=== PATIENT | male | born 1965 | race Caucasian/White ===

== ENCOUNTER 2021-02-23 07:30 | Outpatient (CLI) | payer OTHER, SELFPAY ==
[2021-02-23 07:50] LABS: Basophils Absolute Auto 0.1 K/mm3 (0.0-0.1); Eosinophils Absolute Auto 0.1 K/mm3 (0-0.3); Eosinophils Percent Auto 1.9 % (0-4.4); Hematocrit 44.3 % (42.0-52.0); Hemoglobin 15.3 g/dL (14.0-18.0); Immature Granulocyte Absolute 0.03 K/mm3 (0.00-0.031); Immature Granulocyte Percent A 0.4 % (0-0.5); Lymphocytes Absolute Auto 2.37 K/mm3 (0.9-3.2); Lymphocytes Percent Auto 34.9 % (18.3-44.2); Mean Corpuscular HGB Conc 34.5 g/dl (32-36); Mean Corpuscular Hemoglobin 31.4 pg (26-34); Mean Corpuscular Volume 90.8 fl (80-100); Mean Platelet Volume 10.3 fl (7.4-10.4); Monocytes Absolute Auto 0.4 K/mm3 (0.1-0.6); Monocytes Percent Auto 5.9 % (2.6-8.5); Neutrophils Absolute Auto 3.8 K/mm3 (1.3-6.7); Neutrophils Percent Auto 55.9 % (45.5-73.1); Platelet Count Result 209 k/mm3 (150-375); Red Blood Count 4.88 M/mm3 (4.6-6.20); Red Cell Distribution Width 13.2 % (11.5-14.5); White Blood Count 6.8 K/mm3 (4.5-10.0)
[2021-02-23 08:06] LABS: Alanine Aminotransferase 45 U/L (4-50); Albumin Level 4.5 g/dL (3.5-5.1); Alkaline Phosphatase 52 U/L (38-126); Anion Gap 11 mmol/L (8-16); Aspartate Amino Transferase 29 U/L (17-59); Bilirubin,Total 0.5 mg/dL (0.2-1.3); Blood Urea Nitrogen 16 mg/dL (9-20); Calcium 9.6 mg/dL (8.4-10.2); Carbon Dioxide 22 mmol/L (22-30); Chloride 106 mmol/L (98-107); Cholesterol 223 mg/dL (0-200); Estimated Glomerular Filt Rate > 60; Glucose 123 mg/dL (65-110); HDL Direct 44 mg/dL; Potassium 4.7 mmol/L (3.4-5.0); Sodium 139 mmol/L (137-145); Triglycerides 89 mg/dL (<150)
[2021-02-23 08:18] LABS: LDL Cholesterol Direct 144 mg/dL
[2021-02-23 08:35] LABS: Prostate Specific Antigen 1.6 ng/mL (< OR = 4.0)
[2021-02-23 08:39] LABS: Vitamin D 25 Hydroxy 54.5 ng/mL
[2021-02-26 09:03] LABS: Hemoglobin A1C 6.1 % (<5.7)
== END 2021-02-23 07:31 | disposition home or self-care (01) ==
LOC: ANHLAB 07:32
PROVIDERS: Physician Assistant; PCP Internal Medicine; Visit Provider Internal Medicine
DX: R53.83 Other fatigue (principal); R73.9 Hyperglycemia, unspecified
CPT/HCPCS: 36415; 80053; 80061; 82306; 83036; 84153; 84443; 85025; G0103

== ENCOUNTER 2021-06-25 10:08 | Emergency (ER) | payer OTHER, SELFPAY ==
[2021-06-25 10:23] VITALS: BP 135/88; PULSE 85; RESP 16; TEMP 36.6; O2SAT 99
--- NOTE | 2021-06-25 10:59 | ED.MALEGU ---
HPI - Male Genitourinary General Chief complaint: Urogenital-Male Stated complaint: Urinary Problem Time Seen by Provider: 06/25/21 10:56 Source: patient Mode of arrival: ambulatory Limitations: no limitations History of Present Illness HPI Narrative: 56-year-old male presents with concern for dysuria, frequency, urgency, not emptying his bladder, cloudy, brown, malodorous urine. He reports symptoms started on Friday with fever, body aches, chills, sweats. Reports he has been taking Tylenol ibuprofen. Reports he has no concern for STDs. He denies testicular pain, swelling, redness. He denies back pain, nausea, vomiting, hematuria. MD Complaint: dysuria Related Data Allergies Allergy/AdvReac Type Severity Reaction Status Date / Time bee pollen Allergy Unknown Unknown Verified 06/25/21 10:24 Review of Systems Review of Systems: CONSTITUTIONAL: Reports malaise, chills, sweats, fever. CARDIOVASCULAR: Denies chest pain, palpitations, or edema. RESPIRATORY: Denies cough or dyspnea. GASTROINTESTINAL: Denies abdominal pain, nausea, vomiting, diarrhea, bloody, or mucous stools. GENITOURINARY: Reports dysuria, frequency, urgency or hematuria. Frequent history denies testicular pain, redness, swelling MUSCULOSKELETAL: Reports myalgia. NEUROLOGIC: Denies numbness, weakness, or headache. PSYCHIATRIC: Denies anxiety or depression. All systems reviewed & are unremarkable except as noted in HPI and below [facility] Past Medical History Medical History (Updated 06/25/21 @ 11:05 by Tracey Morales NP) Primary osteoarthritis of right hip Surgical History Surgical History Status post total hip replacement, left Family History Family History Sibling Patient's sister is in good health Patient's brother is in good health Father Acute myocardial infarction, Onset Age: 73 Patient's father is Family history of malignant neoplasm Mother Family history of diabetes mellitus in first degree relative Family history of malignant neoplasm Social History Social History Smoking status: Never smoker Second hand tobacco smoke exposure: Yes Alcohol intake: current Substance use: never Substance use type: does not use Comments At time of signature, agree with nursing past medical, surgical, social and family history. There is no relevant family history pertinent to the presenting complaint Exam Narrative: GENERAL: Nontoxic-appearing, well-nourished, and in no acute distress. HEAD: Normocephalic. EYES: PERRLA, conjunctivae clear. NECK: Supple. No lymphadenopathy CHEST: Clear to auscultation. No respiratory distress. HEART: Regular rate and rhythm. ABDOMEN: Soft, nontender upon palpation, nondistended, normal active bowel sounds, no palpable or pulsatile masses, no guarding. No CVA tenderness SKIN: Warm no rash. Diaphoretic NEURO: Alert and oriented x3. PSYCH: Normal mood and affect Course Course Emergency Course: Patient is aware of diagnosis, understands and agrees to treatment plan. Anticipatory guidance given. Patient agrees to follow-up as directed and is aware of reasons to seek care at the emergency department. Portions of this record may have been created with voice recognition software Level of Care: Express Care Visit Vital Signs Vital signs: Vital Signs Temperature 97.9 F 06/25/21 10:23 Pulse Rate 85 06/25/21 10:23 Respiratory Rate 16 06/25/21 10:23 Blood Pressure 135/88 06/25/21 10:23 Pulse Oximetry 99 06/25/21 10:23 Temperature 97.9 F 06/25/21 10:23 Pulse Rate 85 06/25/21 10:23 Respiratory Rate 16 06/25/21 10:23 Blood Pressure 135/88 06/25/21 10:23 Pulse Oximetry 99 06/25/21 10:23 Reviewed. MDM - Male Genitourinary MDM Narrative Medical decision making narrative: Exam findings show no acute con
== END 2021-06-25 11:08 | disposition home or self-care (01) ==
PROVIDERS: Emergency Provider Nurse Practitioner; PCP Internal Medicine
DX: N39.0 Urinary tract infection, site not specified (principal); M16.11 Unilateral primary osteoarthritis, right hip
CPT/HCPCS: 81003; 87077; 87086; 87186; 99213; G0463

== ENCOUNTER 2022-02-12 07:08 | Outpatient (CLI) | payer OTHER, SELFPAY ==
[2022-02-12 07:19] LABS: Basophils Absolute Auto 0.1 K/mm3 (0.0-0.1); Basophils Percent Auto 0.7 % (0.2-1.2); Eosinophils Absolute Auto 0.1 K/mm3 (0-0.3); Eosinophils Percent Auto 1.7 % (0-4.4); Hematocrit 44.3 % (42.0-52.0); Hemoglobin 14.9 g/dL (14.0-18.0); Immature Granulocyte Absolute 0.01 K/mm3 (0.00-0.031); Immature Granulocyte Percent A 0.1 % (0-0.5); Lymphocytes Absolute Auto 2.23 K/mm3 (0.9-3.2); Lymphocytes Percent Auto 31.9 % (18.3-44.2); Mean Corpuscular HGB Conc 33.6 g/dl (32-36); Mean Corpuscular Hemoglobin 31.2 pg (26-34); Mean Corpuscular Volume 92.9 fl (80-100); Mean Platelet Volume 10.8 fl (7.4-10.4); Monocytes Absolute Auto 0.4 K/mm3 (0.1-0.6); Neutrophils Absolute Auto 4.2 K/mm3 (1.3-6.7); Neutrophils Percent Auto 59.6 % (45.5-73.1); Platelet Count Result 203 k/mm3 (150-375); Red Blood Count 4.77 M/mm3 (4.6-6.20); Red Cell Distribution Width 13.7 % (11.5-14.5)
[2022-02-12 07:31] LABS: Alanine Aminotransferase 24 U/L (6-50); Albumin Level 4.7 g/dL (3.5-5.1); Alkaline Phosphatase 56 U/L (38-126); Anion Gap 9 mmol/L (8-16); Aspartate Amino Transferase 26 U/L (17-59); Bilirubin,Total 0.6 mg/dL (0.2-1.3); Blood Urea Nitrogen 17 mg/dL (9-20); Calcium 9.1 mg/dL (8.4-10.2); Carbon Dioxide 25 mmol/L (22-30); Chloride 105 mmol/L (98-107); Cholesterol 183 mg/dL (0-200); Estimated Glomerular Filt Rate > 60; Glucose 110 mg/dL (65-110); HDL Direct 38 mg/dL; Potassium 4.4 mmol/L (3.4-5.0); Sodium 139 mmol/L (137-145); Triglycerides 90 mg/dL (<150)
[2022-02-12 07:42] LABS: LDL Cholesterol Direct 111 mg/dL
[2022-02-12 08:37] LABS: Folic Acid 17.4 ng/mL (2.76->20)
== END 2022-02-12 07:09 | disposition home or self-care (01) ==
PROVIDERS: PCP Internal Medicine; Visit Provider Internal Medicine
DX: Z00.00 Encounter for general adult medical examination without abnormal findings (principal); R53.83 Other fatigue
CPT/HCPCS: 36415; 80053; 80061; 82607; 82746; 84443; 85025

== ENCOUNTER 2022-04-01 11:40 | Outpatient (CLI) | payer OTHER, SELFPAY ==
--- NOTE | ~2022-04-01 | MMUS_ITS ---
EXAMINATION: MM diagnostic mammo unilat LT, US breast LT limited HISTORY: Screening mammogram TECHNIQUE: Full field digital craniocaudal and mediolateral oblique views of both breasts were obtain ed. CAD analysis was submitted and interpreted. High resolution limited left breast ultrasound was pe rformed. COMPARISON: No prior mammogram is available for comparison at this institution. BREAST PARENCHYMAL COMPOSITION: The breasts are almost entirely fatty. FINDINGS: MAMMOGRAPHIC FINDINGS: There is flame-shaped subareolar density in both breasts, left greater than right. No suspicious mass , calcification, or architectural distortion are identified. ULTRASOUND: There is flame-shaped hypoechoic density in the subareolar aspect of the breast. IMPRESSION: 1. Findings consistent with mild bilateral gynecomastia, left greater than right. Further evaluation at this time should be based on clinical assessment. Continued follow-up physical examination is noa mmended. BI-RADS Category 2: Benign finding(s). Reviewed, dictated and finalized at location A. [employer] IMPRESSION: 1. Findings consistent with mild bilateral gynecomastia, left greater than righ t. Further evaluation at this time should be based on clinical assessment. Cont inued follow-up physical examination is recommended. BI-RADS Category 2: Benign finding(s).
== END 2022-04-01 11:41 | disposition home or self-care (01) ==
PROVIDERS: PCP Internal Medicine; Visit Provider Internal Medicine
DX: N64.4 Mastodynia (principal)
CPT/HCPCS: 76642; 77065

== ENCOUNTER 2023-03-31 01:12 | Day surgery (SDC) | payer OTHER, SELFPAY ==
[2023-03-11 15:43] VITALS: BMI 35.9
[2023-03-11 16:00] VITALS: BMI 35.9
--- NOTE | 2023-03-26 09:27 | SUR.PREOP ---
Patient called regarding upcoming procedure. Message left on patient's voicemail regarding preop instructions, appointment times, and procedure prep.
[2023-03-31 06:48] VITALS: BP 135/91; PULSE 57; RESP 18; TEMP 36.1; O2SAT 97
[2023-03-31] MEDS: LACTATED RINGERS 1,000 ML 150 ML IV CONT (06:54)
--- NOTE | 2023-03-31 07:52 | PM.HPGS ---
History of Present Illness History of Present Illness Consent: Risks, benefits, and alternatives have been discussed and questions answered. Patient agrees to proceed with procedure. Chief complaint: neoplasm screening,hemorrhoids Narrative: Yunior Granger is a 58 year old male with hemorrhoids, last colonoscopy in 2010 Review of Systems Constitutional: Constitutional: Denies headache(s) and Denies weakness Eyes: Eyes: Denies blurry vision ENT: Reports Normal hearing present, Denies headache(s) and Denies neck pain Cardiovascular: Cardiovascular: Denies chest pain and Denies dyspnea Respiratory: Respiratory: Denies dyspnea Gastrointestinal: Gastrointestinal: Reports no additional gastrointestinal complaints Genitourinary: Genitourinary: Denies dysuria Musculoskeletal: Musculoskeletal: Denies neck pain Integumentary/Breasts: Skin/Breast: Denies dry skin Neurologic: Reports Normal hearing present, Denies headache(s) and Denies weakness Psychiatric: Psychiatric: Denies anxiety Endocrine: Endocrine: Denies change in body appearance Hematologic/Lymphatic: Hematologic/Lymphatic: Denies easy bleeding Allergic/Immunologic: Allergic/Immunologic: Denies urticaria PMFSH Past Medical History Medical History (Updated 03/31/23 @ 07:52 by Hamlet Casiano MD) Colon cancer screening Hemorrhoid Primary osteoarthritis of right hip Surgical History Surgical History Status post refractive lens exchange Status post total hip replacement, left Family History Family History Sibling Patient's sister is in good health Patient's brother is in good health Father Acute myocardial infarction, Onset Age: 73 Patient's father is Family history of malignant neoplasm Mother Family history of diabetes mellitus in first degree relative Family history of malignant neoplasm Social History Social History Smoking status: Never smoker Second hand tobacco smoke exposure: Yes Alcohol intake: current Drinks per week: 5 Alcohol use details: BEERS Substance use: never Substance use type: does not use Lack of Transportation: No Lack of Food: Never True Current Housing: I Have Housing Concerned About Future Housing: No Difficulty Paying Gas/Electric Bills: No Difficulty Paying for Meds: No Currently Unemployed: No Education: Master's Degree or Higher Difficulty w/ Childcare or Family Care: No Living arrangements: with family Spiritual care concerns: No Meds Home Medications and Allergies Home Medications Medication Instructions Recorded Confirmed Type No Home Medications 11/06/22 03/11/23 History Allergies Allergy/AdvReac Type Severity Reaction Status Date / Time bee venom protein (honey bee) Allergy Severe Hives Verified 03/31/23 06:48 [bees] Vital Signs Vital Signs - 24 hr 03/31/23 06:48 Temperature 97 F L Pulse Rate 57 L Respiratory Rate 18 Blood Pressure 135/91 H Pulse Oximetry 97 Oxygen Delivery Room Air Exam Const: General: comfortable and no acute distress HENMT: Face/Nose/Sinus: Normal nares present Eyes: General: appearance normal, both eyes and all related structures Neck: Neck: no JVD Resp: Auscultation: clear to auscultation bilaterally Cardio: Rate: regular rate Rhythm: regular rhythm GI: Inspection: non-distended GI Palp: Yes Soft to palpation Skin: General skin exam: normal color Neuro: General: gait normal Speech: normal speech Extrem: General: normal to inspection Psych: Mental Status: mental status grossly normal Assessment and Plan Assessment and plan (1) Colon cancer screening: Code(s): Z12.11 - Encounter for screening for malignant neoplasm of colon Status: Acute Assessment and Plan: colonoscopy (2)
--- NOTE | 2023-03-31 07:56 | WPDANESEPPF ---
Anes - Initial Pre Proc Eval Procedure: Operation Date: 03/31/23 08:00 Proposed Procedures p Screening Colonoscopy - Hamlet Casiano MD s [facility] Hemorrhoid Treatment - Hamlet Casiano MD Date/Time: 03/31/23 07:56 Surgeon: Hamlet Casiano MD Pre Op Diagnosis: neoplasm screening,hemorrhoids Patient Data Age: 58 Gender: M Height: 1.93 m Weight: 137.8 kg Last Vital Signs Temp 97 F L 03/31/23 06:48 Pulse 57 L 03/31/23 06:48 Resp 18 03/31/23 06:48 BP 135/91 H 03/31/23 06:48 Pulse Ox 97 03/31/23 06:48 O2 Del Method Room Air 03/31/23 06:48 Allergies Allergy/AdvReac Type Severity Reaction Status Date / Time bee venom protein (honey bee) Allergy Severe Hives Verified 03/31/23 06:48 [bees] Home Medications Medication Instructions Recorded Confirmed Type No Home Medications 11/06/22 03/11/23 History Patient hx anesthesia problems: none Family hx anesthesia problems: none Results Review: All pre-operative results and documents have been reviewed as part of the pre-operative evaluation. [facility] Past Medical History Medical History (Updated 03/31/23 @ 07:52 by Hamlet Casiano MD) Colon cancer screening Hemorrhoid Primary osteoarthritis of right hip Surgical History Surgical History Status post refractive lens exchange Status post total hip replacement, left Family History Family History Sibling Patient's sister is in good health Patient's brother is in good health Father Acute myocardial infarction, Onset Age: 73 Patient's father is Family history of malignant neoplasm Mother Family history of diabetes mellitus in first degree relative Family history of malignant neoplasm Social History Social History Smoking status: Never smoker Second hand tobacco smoke exposure: Yes Alcohol intake: current Drinks per week: 5 Alcohol use details: BEERS Substance use: never Substance use type: does not use Lack of Transportation: No Lack of Food: Never True Current Housing: I Have Housing Concerned About Future Housing: No Difficulty Paying Gas/Electric Bills: No Difficulty Paying for Meds: No Currently Unemployed: No Education: Master's Degree or Higher Difficulty w/ Childcare or Family Care: No Living arrangements: with family Spiritual care concerns: No Anes - Eval Final PreProcedure Day of Procedure 03/31/23 07:56 Patient weight: obese Heart: regular rate and rhythm Lungs: clear to auscultation Airway: Mallampati scale class II Neurological: alert and oriented Last oral intake: >/= 8 hours ASA classification: II Emergent: no Anesthetic plan: proceed Anesthesia type and monitoring: general GIVS and standard monitoring Results Review: All pre-operative results and documents have been reviewed as part of the pre-operative evaluation. Informed Consent: The patient's anesthetic plan and its attendant risks and benefits were discussed with the patient/family/POA. Questions were solicited and answers provided to the satisfaction of the patient/family/POA.
--- NOTE | 2023-03-31 08:16 | W.PM.PROC2 ---
Procedure Note - Detailed Date of Procedure 03/31/23 Pre-op Diagnosis hemorrhoids Post-op Diagnosis Same Procedure Performed IRC of internal hemorrhoids Surgeon Hamlet Casiano MD Anesthesia MAC (also had colonoscopy) Indications hemorrhoids Findings grade II non-bleeding internal hemorrhoids Description of Procedure found grade II internal hemorrhoids, no fissure, no bleeding when used anoscopy. Then advanced IRC probe and hemorrhoids treated for 1.5 seconds x6
[2023-03-31 08:19] VITALS: BP 98/64; PULSE 53; RESP 16; O2SAT 96
[2023-03-31 08:29] VITALS: BP 115/74; PULSE 50; RESP 17; O2SAT 96
[2023-03-31 08:39] VITALS: BP 125/83; PULSE 50; RESP 17; O2SAT 97
== END 2023-03-31 08:42 | disposition home or self-care (01) ==
PROVIDERS: PCP Internal Medicine; Visit Provider Internal Medicine Gastroenterology
PROC: 0DJD8ZZ Inspection of Lower Intestinal Tract, Via Natural or Artificial Opening Endoscopic (ICD-10-PCS; CPT 45378; principal; 2023-03-31 08:00)
PROC: (CPT 46930; 2023-03-31 08:00)
DX: Z12.11 Encounter for screening for malignant neoplasm of colon (principal); K64.1 Second degree hemorrhoids; F10.90 Alcohol use, unspecified, uncomplicated
CPT/HCPCS: 45378; 46930; J2001; J2371; J2704; J7120

== ENCOUNTER 2023-10-14 07:05 | Outpatient (CLI) | payer OTHER, SELFPAY ==
[2023-10-14 08:30] LABS: Alanine Aminotransferase 28 U/L (6-50); Alkaline Phosphatase 50 U/L (38-126); Anion Gap 9 mmol/L (4-12); Aspartate Amino Transferase 32 U/L (17-59); Bilirubin,Total 0.7 mg/dL (0.2-1.3); Blood Urea Nitrogen 19 mg/dL (9-20); Calcium 9.5 mg/dL (8.4-10.2); Carbon Dioxide 26 mmol/L (22-30); Chloride 105 mmol/L (98-107); Cholesterol 216 mg/dL (0-200); Estimated Glomerular Filt Rate > 60; Glucose 119 mg/dL (65-110); HDL Direct 45 mg/dL; Potassium 4.3 mmol/L (3.4-5.0); Sodium 140 mmol/L (137-145); Triglycerides 119 mg/dL (<150)
[2023-10-14 08:39] LABS: Hemoglobin A1C 5.7 % (<5.7)
[2023-10-14 08:41] LABS: LDL Cholesterol Direct 139 mg/dL
[2023-10-14 08:59] LABS: Prostate Specific Antigen 1.4 ng/mL (< OR = 4.0)
[2023-10-14 09:31] LABS: Vitamin D 25 Hydroxy 58.3 ng/mL
== END 2023-10-14 07:06 | disposition home or self-care (01) ==
PROVIDERS: PCP Internal Medicine; Visit Provider Internal Medicine
DX: Z00.00 Encounter for general adult medical examination without abnormal findings (principal); E78.5 Hyperlipidemia, unspecified; Z13.21 Encounter for screening for nutritional disorder; R73.9 Hyperglycemia, unspecified; Z12.5 Encounter for screening for malignant neoplasm of prostate; Z13.29 Encounter for screening for other suspected endocrine disorder
CPT/HCPCS: 36415; 80053; 80061; 82306; 82607; 83036; 84153; 84443; G0103

== ENCOUNTER 2023-11-10 10:08 | Outpatient (CLI) | payer OTHER, SELFPAY ==
--- NOTE | ~2023-11-10 | XR_ITS ---
Left wrist Technique: PA, oblique, lateral, and ulnar deviation views were obtained. Clinical History: Pain Findings: No acute fracture or dislocation is seen. Osseous alignment is anatomic. Joint spaces are p reserved. Soft tissues are unremarkable. Impression: Unremarkable left wrist radiographs. Reviewed, dictated and finalized at location . Impression: Unremarkable left wrist radiographs.
--- NOTE | ~2023-11-10 | XR_ITS ---
Right wrist Technique: PA, oblique, lateral, and ulnar deviation views were obtained. Clinical History: Pain Findings: No acute fracture or dislocation is seen. Osseous alignment is anatomic. Joint spaces are p reserved. Soft tissues are unremarkable. Impression: Unremarkable right wrist radiographs. Reviewed, dictated and finalized at location . Impression: Unremarkable right wrist radiographs.
== END 2023-11-10 10:09 | disposition home or self-care (01) ==
LOC: ANHIMG 10:08
PROVIDERS: PCP Internal Medicine; Visit Provider Internal Medicine
DX: M25.532 Pain in left wrist (principal)
CPT/HCPCS: 73110

== ENCOUNTER 2024-05-12 09:55 | Emergency (ER) | payer OTHER, SELFPAY ==
--- NOTE | ~2024-05-12 | XR_ITS ---
XR chest 2V Ordering provider: QING Ramos History: 59 years Male with . cough for about 1 month . Comparison: None. FINDINGS: MEDIASTINUM: The cardiac silhouette is not enlarged. LUNGS: No effusions or pneumothorax. Opacification in the left lower lobe area medially which may ind icate early pneumonia. Follow-up advised. OTHER: No free air under the diaphragm. IMPRESSION: Opacification in the left lower lobe area medially which may indicate early pneumonia. Follow-up advi sed. Reviewed, dictated and finalized at location A. ERY BAGGER IMPRESSION: Opacification in the left lower lobe area medially which may indicate early pne umonia. Follow-up advised.
[2024-05-12 10:08] VITALS: BP 135/90; PULSE 61; RESP 18; TEMP 35.5; O2SAT 100
--- NOTE | 2024-05-12 10:25 | ED_ITS ---
HPI - General Adult General Chief complaint: Upper Respiratory Infection Stated complaint: cough / congestion Source: patient Mode of arrival: ambulatory Limitations: no limitations History of Present Illness HPI narrative: Patient presents for evaluation of respiratory symptoms for last 3 days. Symptoms include cough or wheezing. Denies any fever, chills, nausea, vomiting, shortness of breath. He had some diarrhea recently but that has since improved. He is not taking any medication to assist with his symptoms. He does not smoke. Related Data Allergies Allergy/AdvReac Type Severity Reaction Status Date / Time bee venom protein (honey Allergy Severe Hives Verified 05/12/24 10:25 bee) (bees) Review of Systems Review of Systems: CONSTITUTIONAL: Denies fever, chills, or sweats. EYES: Denies visual changes, redness, or discharge. ENT: Denies rhinorrhea, congestion, sore throat, or otalgia. CARDIOVASCULAR: Denies chest pain, palpitations, or edema. RESPIRATORY: reports cough and wheezing. Denies shortness of breath. GASTROINTESTINAL: Denies abdominal pain, nausea, vomiting, or diarrhea. GENITOURINARY: Denies dysuria or hematuria. SKIN: Denies rash or itching. MUSCULOSKELETAL: Denies back pain, joint pain, or myalgia. NEUROLOGIC: Denies headache, numbness, dizziness, or weakness. PSYCHIATRIC: Denies anxiety or depression. [facility] Past Medical History Medical History Hemorrhoid Colon cancer screening Primary osteoarthritis of right hip Surgical History Surgical History Status post refractive lens exchange Status post total hip replacement, left Family History Family History Sibling Patient's sister is in good health Patient's brother is in good health Father Acute myocardial infarction, Onset Age: 73 Patient's father is Family history of malignant neoplasm Mother Family history of diabetes mellitus in first degree relative Family history of malignant neoplasm Social History Social History Smoking status: Never smoker Second hand tobacco smoke exposure: Yes Alcohol intake: current Drinks per week: 5 Alcohol use details: BEERS Substance use: never Substance use type: does not use Lack of Transportation: No Lack of Food: Never True Current Housing: I Have Housing Concerned About Future Housing: No Difficulty Paying Gas/Electric Bills: No Difficulty Paying for Meds: No Currently Unemployed: No Education: Master's Degree or Higher Difficulty w/ Childcare or Family Care: No Living arrangements: with family Spiritual care concerns: No Exam Narrative: GENERAL: Well-appearing, well-nourished, and in no acute distress. HEAD: Normocephalic, atraumatic. EYES: PERRLA and EOMI. ENT: Nares clear, no rhinorrhea or epistaxis. Mucous membranes moist. Oropharynx without tonsillar hypertrophy exudate or other lesions. Bilateral TMs pearly mcgregor nonbulging NECK: Supple. No adenopathy or masses. No carotid bruits or JVD CHEST: Mild wheezing on exam. Cough present. No respiratory distress. HEART: Regular rate and rhythm. No murmur heard. Normal peripheral pulses. ABDOMEN: Soft, nontender, nondistended, normal active bowel sounds. EXTREMITIES: Normal range of motion. No edema. SKIN: Warm, dry, no rash. NEURO: No focal deficits. Alert and oriented x3. PSYCH: Normal mood and affect. Course Course Emergency Course: This is a 59 yr old male who presented for evaluation of respiratory symptoms. COVID and influenza were negative. Chest x-ray concerning for pneumonia. Will tx with augmentin, azithromycin, albuterol and prednisone. He should follow up with primary provider and go to the ER for worsening symptoms. Pt in agreement with plan of care. Level of Care: Express Care Visit Vital Signs Vital signs: Vital Signs Temperature 35.5 C L 05/12/24 10:08 Pulse Rate 61 05/12/24 10:08 Respiratory Rate 18 05/12/24 10:08 Blood Pressure 135/90 05/12/24 10:08 Pulse Oximetry 100 05/12/24 10:08 Oxygen Delivery Room Air 05/12/24 10:08 Temperature 35.5 C L 05/12/24 10:08 Pulse Rate 61 05/12/24 10:08 Respiratory Rate 18 05/12/24 10:08 Blood Pressure 135/90 05/12/24 10:08 Pulse Oximetry 100 05/12/24 10:08 Oxygen Delivery Room Air 05/12/24 10:08 Medical Decision Making Vital Signs Vital Signs: Vital Signs Temperature 35.5 C L 05/12/24 10:08 Pulse Rate 61 05/12/24 10:08 Respiratory Rate 18 05/12/24 10:08 Blood Pressure 135/90 05/12/24 10:08 Pulse Oximetry 100 05/12/24 10:08 Oxygen Delivery Room Air 05/12/24 10:08 Temperature 35.5 C L 05/12/24 10:08 Pulse Rate 61 05/12/24 10:08 Respiratory Rate 18 05/12/24 10:08 Blood Pressure 135/90 05/12/24 10:08 Pulse Oximetry 100 05/12/24 10:08 Oxygen Delivery Room Air 05/12/24 10:08 Lab Data Labs: Lab Results 05/12/24 Range/Units 10:51 POC Influenza A Ag Negative (Negative) POC Influenza B Ag Negative (Negative) POC SARS CoV-2 Ag Negative (Negative) Imaging Data My impression: XR chest 2V Ordering provider: QING Ramos History: 59 years Male with . cough for about 1 month . Comparison: None. FINDINGS: MEDIASTINUM: The cardiac silhouette is not enlarged. LUNGS: No effusions or pneumothorax. Opacification in the left lower lobe area medially which may indicate early pneumonia. Follow-up advised. OTHER: No free air under the diaphragm. IMPRESSION: Opacification in the left lower lobe area medially which may indicate early pneumonia. Follow-up advised. Radiologist's impression: XR chest 2V Ordering provider: QING Ramos History: 59 years Male with . cough for about 1 month . Comparison: None. FINDINGS: MEDIASTINUM: The cardiac silhouette is not enlarged. LUNGS: No effusions or pneumothorax. Opacification in the left lower lobe area medially which may indicate early pneumonia. Follow-up advised. OTHER: No free air under the diaphragm. IMPRESSION: Opacification in the left lower lobe area medially which may indicate early pneumonia. Follow-up advised. Discharge Plan Discharge Clinical Impression: Community acquired pneumonia Patient Disposition: Home, Self-Care Condition: Stable Instructions: Antibiotic Form, Community Acquired Pneumonia (DC) Patient Language: [place] Prescriptions: New amoxicillin-pot clavulanate 875-125 mg tablet 1 tablet PO Q12H Qty: 20 0RF azithromycin 250 mg tablet See Rx Instructions .ROUTE .COMPLEX Qty: 6 0RF Rx Instructions: For 250 mg dose pack: take 500 mg today (day 1), then 250 mg for 4 days (days 2-5) prednisone 50 mg tablet 50 mg PO DAILY Qty: 5 0RF albuterol sulfate 90 mcg/actuation HFA aerosol inhaler 2 puff inhalation QID PRN (Reason: shortness of breath or wheezing) Qty: 8.5 0RF Follow-up/Referrals: Kevan Bernal DO [Primary Care Provider] - Time of Disposition: 11:21
[2024-05-12 10:53] LABS: EDCOVIDSCREEN Negative (Negative); EDINFLUASCREEN Negative (Negative); EDINFLUBSCREEN Negative (Negative)
== END 2024-05-12 11:25 | disposition home or self-care (01) ==
PROVIDERS: Emergency Provider Nurse Practitioner; PCP Internal Medicine
DX: J18.9 Pneumonia, unspecified organism (principal); Z20.822 Contact with and (suspected) exposure to COVID-19
CPT/HCPCS: 71046; 87426; 87804; 99213; G0463

== ENCOUNTER 2024-11-10 11:52 | Outpatient (CLI) | payer OTHER, SELFPAY ==
[2024-11-10 12:19] LABS: Hematocrit 45.0 % (42.0-52.0); Hemoglobin 15.1 g/dL (14.0-18.0); Immature Granulocyte Percent A 0.3 % (0-0.5); Lymphocytes Absolute Auto 2.49 K/mm3 (0.9-3.2); Mean Corpuscular HGB Conc 33.6 g/dl (32-36); Mean Corpuscular Hemoglobin 30.6 pg (26-34); Mean Corpuscular Volume 91.1 fl (80-100); Nucleated Red Blood Cells Absolute Auto 0.000 K/mm3 (0.0-0.012); Nucleated Red Blood Cells Perc 0.0 % (0.0-0.2); Platelet Count Result 208 k/mm3 (150-375); Red Blood Count 4.94 M/mm3 (4.6-6.20); White Blood Count 7.2 K/mm3 (4.5-10.0)
[2024-11-10 16:04] LABS: Alanine Aminotransferase 30 U/L (6-50); Albumin Level 4.4 g/dL (3.5-5.1); Alkaline Phosphatase 45 U/L (38-126); Anion Gap 7 mmol/L (4-12); Aspartate Amino Transferase 34 U/L (17-59); Bilirubin,Total 0.6 mg/dL (0.2-1.3); Blood Urea Nitrogen 14 mg/dL (9-20); Calcium 9.3 mg/dL (8.4-10.2); Carbon Dioxide 27 mmol/L (22-30); Chloride 105 mmol/L (98-107); Cholesterol 222 mg/dL (0-200); Estimated Glomerular Filt Rate > 60; Glucose 108 mg/dL (65-110); HDL Direct 42 mg/dL; Potassium 4.5 mmol/L (3.4-5.0); Sodium 139 mmol/L (137-145); Total Protein 7.5 g/dL (6.3-8.2); Triglycerides 113 mg/dL (<150)
[2024-11-10 16:18] LABS: Hemoglobin A1C 5.9 % (<5.7)
[2024-11-10 16:35] LABS: Prostate Specific Antigen 1.4 ng/mL (< OR = 4.0); Thyroid Stimulating Hormone 2.350 uIU/mL (0.465-4.680)
== END 2024-11-10 11:53 | disposition home or self-care (01) ==
LOC: ANHLAB 11:54
PROVIDERS: PCP Internal Medicine; Visit Provider Internal Medicine
DX: R73.9 Hyperglycemia, unspecified (principal); Z12.5 Encounter for screening for malignant neoplasm of prostate; E78.5 Hyperlipidemia, unspecified; Z13.29 Encounter for screening for other suspected endocrine disorder; Z51.81 Encounter for therapeutic drug level monitoring; Z00.00 Encounter for general adult medical examination without abnormal findings
CPT/HCPCS: 36415; 80053; 80061; 82248; 83036; 84153; 84443; 85025; G0103